=== PATIENT | male | born 1960 | race Caucasian/White ===

== ENCOUNTER 2018-10-09 08:19 | Day surgery (SDC) | payer OTHER ==
[~2018-10-09] VITALS: Ht 172.7 cm; Wt 75.7 kg
[2018-10-09] MEDS ORDERED: LIDOCAINE 2% 100 MG/5 ML UJET TP ONE (10:15)
[2018-10-09] MEDS ORDERED: fentaNYL 0.05 MG/ML VIAL ONE (10:15)
[2018-10-09] MEDS ORDERED: MIDAZOLAM 2 MG/2 ML VIAL ONE (10:15)
== END 2018-10-09 12:10 | disposition home or self-care (01) ==
LOC: MDS 08:19 → MMU 08:19 → MDS 12:10
PROVIDERS: ATTEND Internal Medicine Gastroenterology
DX: Z12.11 Encounter for screening for malignant neoplasm of colon (principal); K63.89 Other specified diseases of intestine; B18.2 Chronic viral hepatitis C; E78.5 Hyperlipidemia, unspecified; Z79.899 Other long term (current) drug therapy
CPT/HCPCS: 45378; J3010; J2250